=== PATIENT | female | born 1960 | race Caucasian/White ===

== ENCOUNTER 2016-06-27 12:16 | Inpatient (IN) | payer MEDICARE, MEDICAID ==
[2016-06-27] MEDS ORDERED: METHYLPREDNISOLONE PF 125MG/VIAL IVP ONE (12:33)
[2016-06-27] MEDS ORDERED: IPRATROPIUM/ALBUTEROL (0.5MG/3MG) NEB INH ONE (12:33)
[2016-06-27 13:04] LABS: HEMATOCRIT 47.1 % (35.0-47.0); HEMOGLOBIN 15.8 gm/dl (11.6-16.0); MEAN CELL VOLUME 91.1 fl (81-97); MEAN CORPUSCULAR HEMOGLOBIN 30.6 pg (27-33); MEAN CORPUSCULAR HGB CONC 33.5 g/dl (32-36); MEAN PLATELET VOLUME 9.8 fl (7.4-10.4); PLATELET COUNT 260 K/uL (130-400); RED BLOOD COUNT 5.17 M/uL (3.80-5.40); RED CELL DISTRIBUTION WIDTH 12.9 % (11.5-14.5); WHITE BLOOD COUNT W/O DIFF 18.5 K/uL (4.2-12.2)
--- NOTE | 2016-06-27 13:21 | Emergency Department Record ---
History of Present Illness - General Chief Complaint: Shortness of breath Stated Complaint: SOB Time Seen by Provider: 06/27/16 12:26 Source: Patient Mode of Arrival: Ambulatory Limitations: No limitations - History of Present Illness Initial Comments: pt has increasing sob, feeling like she cant breathe. pt has yellow prod cough. pt was seen yesterday by PA and given steroids. pt has increasing sob MD Complaint: Cough, Shortness of breath Onset/Timin -: Days(s) Consistency: Getting worse Improves With: Nothing Worsens With: Movement Context: Recent URI Associated Symptoms: Cough, Sputum production Treatments Prior to Arrival: None, Bronchodilator - Related Data Previous Rx's Medication Instructions Recorded Aspirin/Calcium Carbonate/Mag 325 mg PO DAILY #30 tablet 01/03/15 [Aspirin Buffered 325 mg Tab] Cyclobenzaprine HCl [Flexeril] 1 tab PO BID PRN #60 tablet 01/03/15 Fluticasone Propionate [Flonase] 1 - 2 spray EACH NARES DAILY #1 01/03/15 bottle Allergies Allergy/AdvReac Type Severity Reaction Status Date / Time No Known Drug Allergies Allergy Verified 06/27/16 12:27 Travel Screening - Travel/Exposure Within Last 30 Days Have you traveled within the last 30 days?: No - Travel/Exposure Within Last Year Have you traveled outside the [place] in the last year?: No - Additonal Travel Details Have you been exposed to anyone with a communicable illness?: No - Travel Symptoms Symptom Screening: None Review of Systems Reviewed: No additional complaints except as noted below Constitutional: Reports: As per HPI. Denies: Chills, Fever, Malaise, Night sweats, Weakness, Weight change Eyes: Reports: As per HPI. Denies: Eye discharge, Eye pain, Photophobia, Vision change ENT: Reports: As per HPI. Denies: Congestion, Dental pain, Ear pain, Epistaxis , Hearing loss, Throat pain Respiratory: Reports: As per HPI. Denies: Cough, Dyspnea, Hemoptysis, Stridor, Wheezes Cardiovascular: Reports: As per HPI. Denies: Arrhythmia, Chest pain, Dyspnea on exertion, Edema, Murmurs, Orthopnea, Palpitations, Paroxysmal nocturnal dyspnea, Rheumatic Fever, Syncope Endocrine: Reports: As per HPI. Denies: Fatigue, Heat or cold intolerance, Polydipsia, Polyuria Gastrointestinal: Reports: As per HPI. Denies: Abdominal pain, Constipation, Diarrhea, Hematemesis, Hematochezia, Melena, Nausea, Vomiting Genitourinary: Reports: As per HPI. Denies: Abnormal menses, Discharge, Dyspareunia, Dysuria, Frequency, Hematuria, Incontinence, Retention, Urgency Musculoskeletal: Reports: As per HPI. Denies: Arthralgia, Back pain, Gout, Joint swelling, Myalgia, Neck pain Skin: Reports: As per HPI. Denies: Bruising, Change in color, Change in hair/ nails, Lesions, Pruritus, Rash Neurological: Reports: As per HPI. Denies: Abnormal gait, Confusion, Headache, Numbness, Paresthesias, Seizure, Tingling, Tremors, Vertigo, Weakness Psychiatric: Reports: As per HPI. Denies: Anxiety, Auditory hallucinations, Depression, Homicidal thoughts, Suicidal thoughts, Visual hallucinations Hematological/Lymphatic: Reports: As per HPI. 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 - ENDOCRINE Hx Endocrine Disorders: No - MUSCULOSKELETAL Hx Musculoskeletal Disorders: Yes Hx Arthritis: Yes - PSYCH Hx Psych Problems: Yes Hx Anxiety: Yes Hx Depression: Yes - HEMATOLOGY/ONCOLOGY Hx Hematology/Oncology Disorders: Yes Hx Clotting Problems: Yes (factor 5) Family Medical History Any Significant Family History?: No Family Hx Comment (NOT TO BE USED IN PLACE OF ITEMS BELOW): factor 5 (multiple family members)-mom with DVt Hx Cancer: Grandparents *Cancer Comment: colon Hx HTN: Father, Mother, Children, Brother/Sister, Grandparents Hx Stroke: Father Physical Exam - General General Appearance: Alert, Oriented x3, Cooperative, Mild distress - Head Head exam: Normal inspection - Eye Eye exam: Normal appearance, PERRL, EOMI Pupils: Normal accommodation - ENT ENT exam: Normal exam, Mucous membranes moist, Normal external ear exam, Normal orophraynx Ear exam: Normal external inspection. negative: External canal tenderness Nasal Exam: Normal inspection. negative: Discharge, Sinus tenderness Mouth exam: Normal external inspection, Tongue normal Teeth exam: Normal inspection. negative: Dental caries Throat exam: Normal inspection. negative: Tonsillar erythema, Tonsillar exudate - Neck Neck exam: Normal inspection, Full ROM. negative: Tenderness - Respiratory Respiratory exam: Accessory muscle use, Decreased breath sounds, Respiratory distress, Wheezes - Cardiovascular Cardiovascular Exam: Regular rate, Normal rhythm, Normal heart sounds - GI/Abdominal GI/Abdominal exam: Soft, Normal bowel sounds. negative: Tenderness - Rectal Rectal exam: Deferred - exam: Deferred - Extremities Extremities exam: Normal inspection, Full ROM, Normal capillary refill. negative: Tenderness - Back Back exam: Reports: Normal inspection, Full ROM. Denies: Muscle spasm, Rash noted, Tenderness - Neurological Neurological exam: Alert, CN II-XII intact, Normal gait, Oriented X3 - Psychiatric Psychiatric exam: Normal affect, Normal mood - Skin Skin exam: Dry, Intact, Normal color, Warm Course Vital Signs 06/27/16 06/27/16 12:18 12:39 Temperature 97.5 F L Pulse Rate 98 H 94 H Respiratory 20 22 Rate Blood Pressure 146/91 Pulse Ox 94 L 95 - Reevaluation(s) Reevaluation #1: 06/27/16 17:23 pt becomes dyspneic and desats off of oxygen Reevaluation #2: 06/27/16 17:33 pt still desats to mid to upper 80s w/o oxygen. d/w dr siu Medical Decision Making - Lab Data Result diagrams: 06/27/16 12:50 06/27/16 12:50 Lab Results 06/27/16 Range/Units 12:50 WBC 18.5 H (4.2-12.2) K/uL RBC 5.17 (3.80-5.40) M/uL Hgb 15.8 (11.6-16.0) gm/dl Hct 47.1 H (35.0-47.0) % MCV 91.1 (81-97) fl MCH 30.6 (27-33) pg MCHC 33.5 (32-36) g/dl RDW 12.9 (11.5-14.5) % Plt Count 260 (130-400) K/uL MPV 9.8 (7.4-10.4) fl Eosinophils % Not Reportable Basophils % Not Reportable Disposition Disposition: Admit Clinical Impression: COPD with acute exacerbation, Hypoxia, Failure of outpatient treatment Disposition: Still a Patient at [facility] Decision to Admit: Admit from ER Decision to Admit Date: 06/27/16 Decision to Admit Time: 17:36 Forms: Patient Portal Access
[2016-06-27 13:29] LABS: PLATELET ESTIMATE NORMAL (NORMAL)
[2016-06-27 13:32] LABS: ANION GAP 13.4 (7-16); BLOOD UREA NITROGEN 19 mg/dL (7-17); CARBON DIOXIDE 24.6 mmol/L (22-30); CREATININE 0.7 mg/dL (0.52-1.04); EST GLOMERULAR FILTRATION RATE > 60 ml/min; GLUCOSE,RANDOM 107 mg/dL (70-110)
[2016-06-27] MEDS ORDERED: ALBUTEROL SULFATE (0.083%) 2.5 MG/3 ML NEB INH ONE (17:34)
[2016-06-27] MEDS ORDERED: MELOXICAM 7.5 MG TABLET PO PRN (18:26)
[2016-06-27] MEDS ORDERED: ALBUTEROL SULFATE (0.083%) 2.5 MG/3 ML NEB INH PRN (18:26)
[2016-06-27] MEDS ORDERED: ATORVASTATIN 20 MG TABLET PO SCH (18:26)
[2016-06-27] MEDS ORDERED: Non-Formulary MISC (Losartan Potassium [Losartan Potassium] 50 MG) PO SCH (18:26)
[2016-06-27] MEDS ORDERED: CYCLOBENZAPRINE 10MG TABLET PO PRN (18:26)
[2016-06-27] MEDS ORDERED: TRAMADOL HCL 50 MG TABLET PO PRN (18:26)
[2016-06-27] MEDS ORDERED: METOPROLOL TARTRATE 100 MG PO SCH (22:00)
[2016-06-27] MEDS: IPRATROPIUM/ALBUTEROL (0.5MG/3MG) NEB INH PRN (22:34)
[2016-06-27] MEDS: ATORVASTATIN 20 MG TABLET PO SCH (22:48)
[2016-06-28] MEDS: IPRATROPIUM/ALBUTEROL (0.5MG/3MG) NEB INH PRN ×3 (06:13→21:49)
[2016-06-28] MEDS: ACETAMINOPHEN 500 MG TABLET PO PRN ×2 (06:33→21:41)
[2016-06-28] MEDS ORDERED: GUAIFENESIN/D-METH. 10 ML UDC PO PRN (09:34)
[2016-06-28] MEDS ORDERED: Non-Formulary MISC (Duloxetine Hcl [Cymbalta] 60 MG) PO SCH (10:00)
[2016-06-28] MEDS ORDERED: ASPIRIN PO SCH (10:00)
[2016-06-28] MEDS ORDERED: CALCIUM CARBONATE PO SCH (10:00)
[2016-06-28] MEDS ORDERED: MAG PO SCH (10:00)
[2016-06-28] MEDS: LEVOFLOXACIN/D5W 750 MG in DEXTROSE 1 BAG IVPB SCH (11:27)
[2016-06-28] MEDS: DULOXETINE HCL 30 MG CAPSULE.DR PO SCH (11:28)
[2016-06-28] MEDS: GUAIFENESIN 1,200 MG TABLET PO SCH ×2 (11:28→21:41)
[2016-06-28] MEDS: ASPIRIN 325 MG TAB ENTERIC-COATED PO SCH (11:29)
[2016-06-28] MEDS: METHYLPREDNISOLONE PF 125MG/VIAL IVP SCH (11:29)
[2016-06-28] MEDS: METOPROLOL TART 50 MG TABLET PO SCH ×2 (11:31→21:41)
[2016-06-28] MEDS: LOSARTAN POTASSIUM 25 MG TABLET PO SCH (11:34)
--- NOTE | 2016-06-28 15:32 | History & Physical ---
History of Present Illness - Date of Service Date of Service for History & Physical: 06/28/16 - History of Present Illness Admitting Diagnosis: acute exacerbation copd, outpt failure, hypoxia History of Present Illness: 55 yo F presented to ED with increasing SOB with productive cough. Pt was seen yesterday by PA and given steroids. She is a current everyday smoker of 1ppd since [id number] and now smokes a few ciggs a day now. At home she was doing duonebs, albuterol, and flonase. She was not taking any daily COPD medications. She was given solumederol 125mg IM/IV dose twice in past two days. Now she is on 60mg daily and was started on levaquin with duonebs here. She did have some flacial flushing but otherwise appears improved. Past medical history of superficial venous thrombosis, weakness, IBS, athritis, fibromyalgia, anxiety/depression, Factor 5 Liden. Patient has finished rehab for leg weakness, Sxh: hysterectomy, hemmorhoidectomy, cholescystectomy, Travel Screening - Travel/Exposure Within Last 30 Days Have you traveled within the last 30 days?: No - Travel/Exposure Within Last Year Have you traveled outside the [place] in the last year?: No - Additonal Travel Details Have you been exposed to anyone with a communicable illness?: Yes Exposure Details:: RSV - Travel Symptoms Symptom Screening: Headache, Weakness, Fatigue, Lack of Appetite, Chills Review of Systems Constitutional: Reports: As per HPI. Denies: Chills, Fever, Malaise, Night sweats, Weakness, Weight change Eyes: Reports: As per HPI. Denies: Eye discharge, Eye pain, Photophobia, Vision change ENT: Reports: As per HPI. Denies: Congestion, Dental pain, Ear pain, Epistaxis , Hearing loss, Throat pain Respiratory: Reports: As per HPI. Denies: Cough, Dyspnea, Hemoptysis, Stridor, Wheezes Cardiovascular: Reports: As per HPI. Denies: Arrhythmia, Chest pain, Dyspnea on exertion, Edema, Murmurs, Orthopnea, Palpitations, Paroxysmal nocturnal dyspnea, Rheumatic Fever, Syncope Endocrine: Reports: As per HPI. Denies: Fatigue, Heat or cold intolerance, Polydipsia, Polyuria Gastrointestinal: Reports: As per HPI. Denies: Abdominal pain, Constipation, Diarrhea, Hematemesis, Hematochezia, Melena, Nausea, Vomiting Genitourinary: Reports: As per HPI. Denies: Abnormal menses, Discharge, Dyspareunia, Dysuria, Frequency, Hematuria, Incontinence, Retention, Urgency Musculoskeletal: Reports: As per HPI. Denies: Arthralgia, Back pain, Gout, Joint swelling, Myalgia, Neck pain Skin: Reports: As per HPI. Denies: Bruising, Change in color, Change in hair/ nails, Lesions, Pruritus, Rash Neurological: Reports: As per HPI. Denies: Abnormal gait, Confusion, Headache, Numbness, Paresthesias, Seizure, Tingling, Tremors, Vertigo, Weakness Psychiatric: Reports: As per HPI. Denies: Anxiety, Auditory hallucinations, Depression, Homicidal thoughts, Suicidal thoughts, Visual hallucinations Hematological/Lymphatic: Reports: As per HPI. 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 - ENDOCRINE Hx Endocrine Disorders: No - MUSCULOSKELETAL Hx Musculoskeletal Disorders: Yes Hx Arthritis: Yes - PSYCH Hx Psych Problems: Yes Hx Anxiety: Yes Hx Depression: Yes - HEMATOLOGY/ONCOLOGY Hx Hematology/Oncology Disorders: Yes Hx Clotting Problems: Yes (factor 5) Family Medical History Any Significant Family History?: No Family Hx Comment (NOT TO BE USED IN PLACE OF ITEMS BELOW): factor 5 (multiple family members)-mom with DVt Hx Cancer: Grandparents *Cancer Comment: colon Hx HTN: Father, Mother, Children, Brother/Sister, Grandparents Hx Stroke: Father H&P Meds/Allergies - Allergies Allergies: Allergies Allergy/AdvReac Type Severity Reaction Status Date / Time No Known Drug Allergies Allergy Verified 06/27/16 12:27 - Home Medications Previous Rx's Medication Instructions Recorded Aspirin/Calcium Carbonate/Mag 325 mg PO DAILY #30 tablet 01/03/15 [Aspirin Buffered 325 mg Tab] Cyclobenzaprine HCl [Flexeril] 1 tab PO BID PRN #60 tablet 01/03/15 Fluticasone Propionate [Flonase] 1 - 2 spray EACH NARES DAILY #1 01/03/15 bottle - Active Medications Active Medications: Current Medications Acetaminophen (Tylenol 500mg Tab) 1,000 mg PO Q6H PRN PRN Reason: PAIN/TEMP Last Admin: 06/28/16 06:33 Dose: 1,000 mg Albuterol Sulfate () 2.5 mg INH RESP.Q4H PRN PRN Reason: DIFFICULTY IN BREATHING Albuterol/Ipratropium (Duoneb) 3 ml INH RESP.Q6H PRN PRN Reason: Wheezing Last Admin: 06/28/16 13:55 Dose: 3 ml Aspirin (Ecotrin (Ec)) 325 mg PO DAILY [facility] Last Admin: 06/28/16 11:29 Dose: 325 mg Atorvastatin Calcium (Lipitor) 20 mg PO QHS [facility] Last Admin: 06/27/16 22:48 Dose: Not Given Benzonatate (Tessalon) 100 mg PO TID PRN PRN Reason: COUGH Cyclobenzaprine HCl (Flexeril) 10 mg PO BID PRN PRN Reason: Pain - General Duloxetine HCl (Cymbalta) 60 mg PO DAILY [facility] Last Admin: 06/28/16 11:28 Dose: 60 mg Guaifenesin (Robitussin Dm) 10 ml PO Q4H PRN PRN Reason: COUGH Guaifenesin (Mucinex) 1,200 mg PO BID [facility] Last Admin: 06/28/16 11:28 Dose: 1,200 mg Levofloxacin/Dextrose 750 mg/ (Glucose) 150 mls @ 125 mls/hr IVPB DAILY [facility] Stop: 07/03/16 10:01 Last Admin: 06/28/16 11:27 Dose: 125 mls/hr Losartan Potassium (Cozaar) 50 mg PO DAILY [facility] Last Admin: 06/28/16 11:34 Dose: Not Given Meloxicam (Mobic) 7.5 mg PO BID PRN PRN Reason: Pain - Moderate (5-7) Methylprednisolone Sodium Succinate (Solu-Medrol) 60 mg IVP DAILY [facility] Last Admin: 06/28/16 11:29 Dose: 60 mg Metoprolol Tartrate (Lopressor) 100 mg PO BID [facility] Last Admin: 06/28/16 11:31 Dose: 100 mg Tramadol HCl (Ultram) 50 mg PO Q6H PRN PRN Reason: BREAKTHROUGH PAIN Physical Exam - Vital Signs Vital Signs: Vital Signs - Last 24 Hrs Temp Pulse Pulse Resp BP Pulse Ox 06/28/16 13:59 95 06/28/16 13:57 87 18 97 06/28/16 11:35 97.9 F 98 H 20 113/68 95 06/28/16 08:52 100 H 20 06/28/16 06:36 98.1 F 100 H 24 146/76 94 L 06/28/16 06:13 99 H 20 97 06/28/16 02:26 98.1 F 92 H 20 90/50 96 06/27/16 22:34 107 H 20 93 L 06/27/16 18:26 98.6 F 93 H 20 120/61 93 L - General General Appearance: Alert, Oriented x3, Cooperative, Mild distress Limitations: No limitations - Head Head exam: Normal inspection - Eye Eye exam: Normal appearance, PERRL, EOMI Pupils: Normal accommodation - ENT ENT exam: Normal exam, Mucous membranes moist, Normal external ear exam, Normal orophraynx Ear exam: Normal external inspection. negative: External canal tenderness Nasal Exam: Normal inspection. negative: Discharge, Sinus tenderness Mouth exam: Normal external inspection, Tongue normal Teeth exam: Normal inspection. negative: Dental caries Throat exam: Normal inspection. negative: Tonsillar erythema, Tonsillar exudate - Neck Neck exam: Normal inspection, Full ROM. negative: Tenderness - Respiratory Respiratory exam: Accessory muscle use, Decreased breath sounds, Respiratory distress, Wheezes - Cardiovascular Cardiovascular Exam: Regular rate, Normal rhythm, Normal heart sounds - GI/Abdominal GI/Abdominal exam: Soft, Normal bowel sounds. negative: Tenderness - Rectal Rectal exam: Deferred - exam: Deferred - Extremities Extremities exam: Normal inspection, Full ROM, Normal capillary refill. negative: Tenderness - Back Back exam: Reports: Normal inspection, Full ROM. Denies: Muscle spasm, Rash noted, Tenderness - Neurological Neurological exam: Alert, CN II-XII intact, Normal gait, Oriented X3 - Psychiatric Psychiatric exam: Normal affect, Normal mood - Skin Skin exam: Dry, Intact, Normal color, Warm Results - Labs Result Diagrams: 06/27/16 12:50 06/27/16 12:50 VTE H&P Assessment - Risk for VTE Risk for VTE: Yes Risk Level: Moderate Risk Assessment Date: 06/28/16 Risk Assessment Time: 16:17 VTE Orders Placed or Will Be Placed: Yes Plan - Detailed Diagnosis and Plan (1) COPD with acute exacerbation Current Visit: Yes Status: Acute Base Code: J44.1 - CHRONIC OBSTRUCTIVE PULMONARY DISEASE W (ACUTE) EXACERBATION Comment: 06/28- start COPD pathway with prophylactic antibiotic (levaquin), steroids 60mg/day (given loading dose 125mg in ER), and breathing treatments with duonebs, albuterol, and advair. ordered RSV and influenza PCR. Explained to patient will take some time to improve. currently still desating to low 80s with ambulation to bathroom. (2) DVT prophylaxis Current Visit: Yes Status: Acute Base Code: [id number] - Comment: - lovenox 40mg daily (3) Full code status Current Visit: Yes Status: Acute Base Code: Z78.9 - OTHER SPECIFIED HEALTH STATUS Comment: - full code diring this admission
[2016-06-28] MEDS: FLUTICASONE/SALMETEROL 500/50 DISKUS INH SCH (17:39)
[2016-06-28] MEDS: ENOXAPARIN 40 MG/0.4 ML SYR SQ SCH (17:59)
[2016-06-28] MEDS: ATORVASTATIN 20 MG TABLET PO SCH (21:41)
[2016-06-29] MEDS: FLUTICASONE/SALMETEROL 500/50 DISKUS INH SCH ×3 (06:59→17:32)
--- NOTE | 2016-06-29 07:21 | RADIOLOGY REPORT ---
EXAM: CHEST, TWO VIEWS HISTORY: DIFFICULTY BREATHING. TECHNIQUE: Frontal and lateral views of the chest were obtained. Comparison: Prior chest 06/26/16. FINDINGS: The heart size is normal. The lungs are clear. There is no pneumothorax. IMPRESSION: NEGATIVE CHEST EXAMINATION. JOB NUMBER: [id number] MTDD
[2016-06-29] MEDS: IPRATROPIUM/ALBUTEROL (0.5MG/3MG) NEB INH PRN ×2 (08:56→21:13)
[2016-06-29] MEDS: LOSARTAN POTASSIUM 25 MG TABLET PO SCH (10:25)
[2016-06-29] MEDS: DULOXETINE HCL 30 MG CAPSULE.DR PO SCH (10:26)
[2016-06-29] MEDS: ASPIRIN 325 MG TAB ENTERIC-COATED PO SCH (10:27)
[2016-06-29] MEDS: METOPROLOL TART 50 MG TABLET PO SCH ×2 (10:27→23:08)
[2016-06-29] MEDS: METHYLPREDNISOLONE PF 125MG/VIAL IVP SCH (10:28)
[2016-06-29] MEDS: ENOXAPARIN 40 MG/0.4 ML SYR SQ SCH (10:28)
[2016-06-29] MEDS: GUAIFENESIN 1,200 MG TABLET PO SCH ×2 (10:28→23:09)
[2016-06-29] MEDS: LEVOFLOXACIN/D5W 750 MG in DEXTROSE 1 BAG IVPB SCH (10:40)
--- NOTE | 2016-06-29 18:45 | Physician Progress Note ---
Subjective - Date Date of Physician Progress Note: 06/29/16 - Subjective Subjective Comment: Patient still struggling to breath with ambulation and desatting Objective - Vital Signs Vital Signs: Vital Signs - Last 24 Hrs Pulse Resp Pulse Ox 06/29/16 17:33 90 20 95 - General General Appearance: Alert, Oriented x3, Cooperative, Mild distress Limitations: No limitations - Head Head exam: Normal inspection - Eye Eye exam: Normal appearance, PERRL, EOMI Pupils: Normal accommodation - ENT ENT exam: Normal exam, Mucous membranes moist, Normal external ear exam, Normal orophraynx Ear exam: Normal external inspection. negative: External canal tenderness Nasal Exam: Normal inspection. negative: Discharge, Sinus tenderness Mouth exam: Normal external inspection, Tongue normal Teeth exam: Normal inspection. negative: Dental caries Throat exam: Normal inspection. negative: Tonsillar erythema, Tonsillar exudate - Neck Neck exam: Normal inspection, Full ROM. negative: Tenderness - Respiratory Respiratory exam: Accessory muscle use, Decreased breath sounds, Respiratory distress, Wheezes - Cardiovascular Cardiovascular Exam: Regular rate, Normal rhythm, Normal heart sounds - GI/Abdominal GI/Abdominal exam: Soft, Normal bowel sounds. negative: Tenderness - Rectal Rectal exam: Deferred - exam: Deferred - Extremities Extremities exam: Normal inspection, Full ROM, Normal capillary refill. negative: Tenderness - Back Back exam: Reports: Normal inspection, Full ROM. Denies: Muscle spasm, Rash noted, Tenderness - Neurological Neurological exam: Alert, CN II-XII intact, Normal gait, Oriented X3 - Psychiatric Psychiatric exam: Normal affect, Normal mood - Skin Skin exam: Dry, Intact, Normal color, Warm Assessment and Plan - Assessment and Plan (1) COPD with acute exacerbation Current Visit: Yes Status: Acute Base Code: J44.1 - CHRONIC OBSTRUCTIVE PULMONARY DISEASE W (ACUTE) EXACERBATION Comment: 06/29- patient tested positive for RSV, negative for flu. Continue COPD pathway with prophylactic antibiotic (levaquin), steroids 60mg/day (given loading dose 125mg in ER), and breathing treatments with duonebs, albuterol, and advair. Explained to patient will take some time to improve. Currently still desating to low 80s with ambulation to bathroom. (2) DVT prophylaxis Current Visit: Yes Status: Acute Base Code: [id number] - Comment: - lovenox 40mg daily (3) Full code status Current Visit: Yes Status: Acute Base Code: Z78.9 - OTHER SPECIFIED HEALTH STATUS Comment: - full code diring this admission Results - Labs Result Diagrams: 06/27/16 12:50 06/27/16 12:50 DVT/PE Assessment - Risk for VTE Risk for VTE: No Risk Level: Moderate Risk Assessment Date: 06/28/16 Risk Assessment Time: 16:17 VTE Orders Placed or Will Be Placed: Yes - Active Medicaitons Current Medications: Current Medications Acetaminophen (Tylenol 500mg Tab) 1,000 mg PO Q6H PRN PRN Reason: PAIN/TEMP Last Admin: 06/28/16 21:41 Dose: 1,000 mg Albuterol Sulfate () 2.5 mg INH RESP.Q4H PRN PRN Reason: DIFFICULTY IN BREATHING Albuterol/Ipratropium (Duoneb) 3 ml INH RESP.Q6H PRN PRN Reason: Wheezing Last Admin: 06/29/16 08:56 Dose: 3 ml Aspirin (Ecotrin (Ec)) 325 mg PO DAILY [facility] Last Admin: 06/29/16 10:27 Dose: 325 mg Atorvastatin Calcium (Lipitor) 20 mg PO QHS [facility] Last Admin: 06/28/16 21:41 Dose: 20 mg Benzonatate (Tessalon) 100 mg PO TID PRN PRN Reason: COUGH Cyclobenzaprine HCl (Flexeril) 10 mg PO BID PRN PRN Reason: Pain - General Duloxetine HCl (Cymbalta) 60 mg PO DAILY [facility] Last Admin: 06/29/16 10:26 Dose: 60 mg Enoxaparin Sodium (Lovenox) 40 mg SQ DAILY [facility] Last Admin: 06/29/16 10:28 Dose: 40 mg Guaifenesin (Robitussin Dm) 10 ml PO Q4H PRN PRN Reason: COUGH Guaifenesin (Mucinex) 1,200 mg PO BID [facility] Last Admin: 06/29/16 10:28 Dose: 1,200 mg Levofloxacin/Dextrose 750 mg/ (Glucose) 150 mls @ 125 mls/hr IVPB DAILY [facility] Stop: 07/03/16 10:01 Last Admin: 06/29/16 10:40 Dose: 125 mls/hr Losartan Potassium (Cozaar) 50 mg PO DAILY [facility] Last Admin: 03/20/17 10:25 Dose: 50 mg Meloxicam (Mobic) 7.5 mg PO BID PRN PRN Reason: Pain - Moderate (5-7) Methylprednisolone Sodium Succinate (Solu-Medrol) 60 mg IVP DAILY [facility] Last Admin: 06/29/16 10:28 Dose: 60 mg Metoprolol Tartrate (Lopressor) 100 mg PO BID [facility] Last Admin: 06/29/16 10:27 Dose: 100 mg Fluticasone/Salmeterol (Advair 500/50) 1 puff INH RESP.Q12H [facility] Last Admin: 06/29/16 17:32 Dose: 1 puff Tramadol HCl (Ultram) 50 mg PO Q6H PRN PRN Reason: BREAKTHROUGH PAIN AMI Plan - Labs Result Diagrams: 06/27/16 12:50 06/27/16 12:50
[2016-06-29] MEDS: ATORVASTATIN 20 MG TABLET PO SCH (23:09)
[2016-06-30] MEDS: IPRATROPIUM/ALBUTEROL (0.5MG/3MG) NEB INH PRN (06:00)
[2016-06-30] MEDS: FLUTICASONE/SALMETEROL 500/50 DISKUS INH SCH ×2 (06:10→17:05)
--- NOTE | 2016-06-30 10:02 | Physician Progress Note ---
Subjective - Date Date of Physician Progress Note: 06/30/16 - Subjective Subjective Comment: continues to feel sob w/ ambulation O2 desat into 80's w/ ambulation appetite decreased normal /GI output afebrile. Objective - Vital Signs Vital Signs: Vital Signs - Last 24 Hrs Temp Pulse Pulse Resp BP Pulse Ox 06/30/16 08:00 97.1 F L 89 14 107/61 95 06/30/16 06:10 79 20 06/30/16 06:00 76 20 97 06/29/16 23:10 97.8 F 100 H 22 98/55 94 L 06/29/16 21:58 98.4 F 95 H 20 124/71 93 L 06/29/16 21:13 95 H 20 94 L 06/29/16 17:33 90 20 95 - General General Appearance: Alert, Oriented x3, Cooperative, No acute distress Limitations: No limitations - Head Head exam: Normal inspection - Eye Eye exam: Normal appearance, PERRL, EOMI Pupils: Normal accommodation - ENT ENT exam: Normal exam, Mucous membranes moist, Normal external ear exam, Normal orophraynx Ear exam: Normal external inspection. negative: External canal tenderness Nasal Exam: Normal inspection. negative: Discharge, Sinus tenderness Mouth exam: Normal external inspection, Tongue normal Teeth exam: Normal inspection. negative: Dental caries Throat exam: Normal inspection. negative: Tonsillar erythema, Tonsillar exudate - Neck Neck exam: Normal inspection, Full ROM. negative: Tenderness - Respiratory Respiratory exam: Decreased breath sounds, Wheezes - Cardiovascular Cardiovascular Exam: Regular rate, Normal rhythm, Normal heart sounds - GI/Abdominal GI/Abdominal exam: Soft, Normal bowel sounds. negative: Tenderness - Rectal Rectal exam: Deferred - exam: Deferred - Extremities Extremities exam: Normal inspection, Full ROM, Normal capillary refill. negative: Tenderness - Back Back exam: Reports: Normal inspection, Full ROM. Denies: Muscle spasm, Rash noted, Tenderness - Neurological Neurological exam: Alert, CN II-XII intact, Normal gait, Oriented X3 - Psychiatric Psychiatric exam: Normal affect, Normal mood - Skin Skin exam: Dry, Intact, Normal color, Warm Assessment and Plan - Inpatient Certification Inpatient Certification: est length of stay: 48-72 hours risk factors: shortness of breath, oxygen desating into the 80's on RA, positive RSV, oxygen supp treatments: close monitoring, IV antibiotic, oxygen supplementation, respiratory therapy services. discharge plan: home, self care 06/30/16 10:01 06/30/16 10:02 - Assessment and Plan (1) COPD with acute exacerbation Current Visit: Yes Status: Acute Base Code: J44.1 - CHRONIC OBSTRUCTIVE PULMONARY DISEASE W (ACUTE) EXACERBATION Comment: 06/30/16- patient tested positive for RSV, negative for flu. Continue COPD pathway with prophylactic antibiotic (levaquin), steroids 60mg/day (given loading dose 125mg in ER), and breathing treatments with duonebs, albuterol, and advair. Explained to patient will take some time to improve. Currently still desating to low 80s with ambulation to bathroom. supplemental O2 02/11. Will trial inhaled saline solution following duo neb treatments to see if this helps break up pulm secretions. (2) DVT prophylaxis Current Visit: Yes Status: Acute Base Code: [id number] - Comment: 06/30/16- lovenox 40mg daily (3) Full code status Current Visit: Yes Status: Acute Base Code: Z78.9 - OTHER SPECIFIED HEALTH STATUS Comment: 06/30/16- full code diring this admission Results - Labs Result Diagrams: 06/27/16 12:50 06/27/16 12:50 DVT/PE Assessment - Risk for VTE Risk for VTE: No Risk Level: Moderate Risk Assessment Date: 06/28/16 Risk Assessment Time: 16:17 VTE Orders Placed or Will Be Placed: Yes - Active Medicaitons Current Medications: Current Medications Acetaminophen (Tylenol 500mg Tab) 1,000 mg PO Q6H PRN PRN Reason: PAIN/TEMP Last Admin: 06/28/16 21:41 Dose: 1,000 mg Albuterol Sulfate () 2.5 mg INH RESP.Q4H PRN PRN Reason: DIFFICULTY IN BREATHING Albuterol/Ipratropium (Duoneb) 3 ml INH RESP.Q6H PRN PRN Reason: Wheezing Last Admin: 06/30/16 06:00 Dose: 3 ml Aspirin (Ecotrin (Ec)) 325 mg PO DAILY [facility] Last Admin: 06/29/16 10:27 Dose: 325 mg Atorvastatin Calcium (Lipitor) 20 mg PO QHS [facility] Last Admin: 06/29/16 23:09 Dose: 20 mg Benzonatate (Tessalon) 100 mg PO TID PRN PRN Reason: COUGH Cyclobenzaprine HCl (Flexeril) 10 mg PO BID PRN PRN Reason: Pain - General Duloxetine HCl (Cymbalta) 60 mg PO DAILY [facility] Last Admin: 06/29/16 10:26 Dose: 60 mg Enoxaparin Sodium (Lovenox) 40 mg SQ DAILY [facility] Last Admin: 06/29/16 10:28 Dose: 40 mg Guaifenesin (Robitussin Dm) 10 ml PO Q4H PRN PRN Reason: COUGH Guaifenesin (Mucinex) 1,200 mg PO BID [facility] Last Admin: 06/29/16 23:09 Dose: 1,200 mg Levofloxacin/Dextrose 750 mg/ (Glucose) 150 mls @ 125 mls/hr IVPB DAILY [facility] Stop: 07/03/16 10:01 Last Admin: 06/29/16 10:40 Dose: 125 mls/hr Losartan Potassium (Cozaar) 50 mg PO DAILY [facility] Last Admin: 06/29/16 10:25 Dose: 50 mg Meloxicam (Mobic) 7.5 mg PO BID PRN PRN Reason: Pain - Moderate (5-7) Methylprednisolone Sodium Succinate (Solu-Medrol) 60 mg IVP DAILY [facility] Last Admin: 06/29/16 10:28 Dose: 60 mg Metoprolol Tartrate (Lopressor) 100 mg PO BID [facility] Last Admin: 06/29/16 23:08 Dose: 100 mg Fluticasone/Salmeterol (Advair 500/50) 1 puff INH RESP.Q12H [facility] Last Admin: 06/30/16 06:10 Dose: 1 puff Tramadol HCl (Ultram) 50 mg PO Q6H PRN PRN Reason: BREAKTHROUGH PAIN AMI Plan - Labs Result Diagrams: 06/27/16 12:50 06/27/16 12:50
[2016-06-30] MEDS: METHYLPREDNISOLONE PF 125MG/VIAL IVP SCH (10:27)
[2016-06-30] MEDS: DULOXETINE HCL 30 MG CAPSULE.DR PO SCH (10:28)
[2016-06-30] MEDS: LOSARTAN POTASSIUM 25 MG TABLET PO SCH (10:28)
[2016-06-30] MEDS: METOPROLOL TART 50 MG TABLET PO SCH ×2 (10:28→22:10)
[2016-06-30] MEDS: ASPIRIN 325 MG TAB ENTERIC-COATED PO SCH (10:29)
[2016-06-30] MEDS: ENOXAPARIN 40 MG/0.4 ML SYR SQ SCH (10:29)
[2016-06-30] MEDS: LEVOFLOXACIN/D5W 750 MG in DEXTROSE 1 BAG IVPB SCH (10:29)
[2016-06-30] MEDS: GUAIFENESIN 1,200 MG TABLET PO SCH ×2 (10:35→22:10)
[2016-06-30] MEDS ORDERED: SODIUM CHLORIDE 7% FOR INHALATION 4 ML NEB INH ONE (11:49)
[2016-06-30] MEDS: IPRATROPIUM/ALBUTEROL (0.5MG/3MG) NEB INH SCH ×4 (11:55→22:14)
[2016-06-30] MEDS: ATORVASTATIN 20 MG TABLET PO SCH (22:10)
[2016-06-30] MEDS: SODIUM CHLORIDE 7% FOR INHALATION 4 ML NEB INH SCH (22:22)
[2016-07-01] MEDS: IPRATROPIUM/ALBUTEROL (0.5MG/3MG) NEB INH SCH ×5 (06:10→23:00)
[2016-07-01] MEDS: FLUTICASONE/SALMETEROL 500/50 DISKUS INH SCH ×2 (06:10→19:02)
[2016-07-01] MEDS: METOPROLOL TART 50 MG TABLET PO SCH ×2 (09:29→22:20)
[2016-07-01] MEDS: LOSARTAN POTASSIUM 25 MG TABLET PO SCH (09:29)
[2016-07-01] MEDS: METHYLPREDNISOLONE PF 125MG/VIAL IVP SCH (09:30)
[2016-07-01] MEDS: DULOXETINE HCL 30 MG CAPSULE.DR PO SCH (09:32)
[2016-07-01] MEDS: LEVOFLOXACIN 500 MG TABLET PO SCH (09:33)
[2016-07-01] MEDS: ASPIRIN 325 MG TAB ENTERIC-COATED PO SCH (09:33)
[2016-07-01] MEDS: GUAIFENESIN 1,200 MG TABLET PO SCH ×2 (09:33→22:19)
[2016-07-01] MEDS: ENOXAPARIN 40 MG/0.4 ML SYR SQ SCH (09:34)
[2016-07-01] MEDS ORDERED: PREDNISONE 20 MG TAB PO SCH (10:00)
[2016-07-01 10:05] LABS: HEMATOCRIT 45.7 % (35.0-47.0); MEAN CELL VOLUME 93.8 fl (81-97); MEAN CORPUSCULAR HEMOGLOBIN 30.8 pg (27-33); MEAN CORPUSCULAR HGB CONC 32.8 g/dl (32-36); MEAN PLATELET VOLUME 9.3 fl (7.4-10.4); PLATELET COUNT 243 K/uL (130-400); RED BLOOD COUNT 4.87 M/uL (3.80-5.40); RED CELL DISTRIBUTION WIDTH 12.8 % (11.5-14.5); WHITE BLOOD COUNT W/O DIFF 13.9 K/uL (4.2-12.2)
[2016-07-01 10:21] LABS: ANION GAP 4.4 (7-16); BLOOD UREA NITROGEN 24 mg/dL (7-17); CARBON DIOXIDE 28.6 mmol/L (22-30); CREATININE 0.7 mg/dL (0.52-1.04); EST GLOMERULAR FILTRATION RATE > 60 ml/min; GLUCOSE,RANDOM 121 mg/dL (70-110)
[2016-07-01 10:24] LABS: PLATELET ESTIMATE NORMAL (NORMAL)
--- NOTE | 2016-07-01 10:31 | Physician Progress Note ---
Subjective - Date Date of Physician Progress Note: 07/01/16 - Subjective Subjective Comment: continues to feel fatigued, weak. more of a productive cough today decreased appetite normal /GI function afebrile though feels flushed Objective - Vital Signs Vital Signs: Vital Signs - Last 24 Hrs Temp Pulse Pulse Resp BP Pulse Ox 07/01/16 08:45 97.5 F L 87 18 108/65 96 07/01/16 06:10 70 70 L 07/01/16 00:00 98.3 F 78 16 109/71 94 L 06/30/16 22:22 79 20 06/30/16 22:14 77 20 95 06/30/16 17:08 86 97 H 95 06/30/16 17:05 82 18 96 06/30/16 12:09 84 16 - General General Appearance: Alert, Oriented x3, Cooperative, No acute distress Limitations: No limitations - Head Head exam: Normal inspection - Eye Eye exam: Normal appearance, PERRL, EOMI Pupils: Normal accommodation - ENT ENT exam: Normal exam, Mucous membranes moist, Normal external ear exam, Normal orophraynx Ear exam: Normal external inspection. negative: External canal tenderness Nasal Exam: Normal inspection. negative: Discharge, Sinus tenderness Mouth exam: Normal external inspection, Tongue normal Teeth exam: Normal inspection. negative: Dental caries Throat exam: Normal inspection. negative: Tonsillar erythema, Tonsillar exudate - Neck Neck exam: Normal inspection, Full ROM. negative: Tenderness - Respiratory Respiratory exam: Decreased breath sounds, Prolonged expiratory, Wheezes. negative: Respiratory distress - Cardiovascular Cardiovascular Exam: Regular rate, Normal rhythm, Normal heart sounds - GI/Abdominal GI/Abdominal exam: Soft, Normal bowel sounds. negative: Tenderness - Rectal Rectal exam: Deferred - exam: Deferred - Extremities Extremities exam: Normal inspection, Full ROM, Normal capillary refill. negative: Tenderness - Back Back exam: Reports: Normal inspection, Full ROM. Denies: Muscle spasm, Rash noted, Tenderness - Neurological Neurological exam: Alert, CN II-XII intact, Normal gait, Oriented X3 - Psychiatric Psychiatric exam: Normal affect, Normal mood - Skin Skin exam: Dry, Intact, Normal color, Warm Assessment and Plan - Assessment and Plan (1) COPD with acute exacerbation Current Visit: Yes Status: Acute Base Code: J44.1 - CHRONIC OBSTRUCTIVE PULMONARY DISEASE W (ACUTE) EXACERBATION Comment: 07/01/16- patient tested positive for RSV, negative for flu. Continue COPD pathway with prophylactic antibiotic (levaquin), steroids 60mg/day (given loading dose 125mg in ER), and breathing treatments with duonebs, albuterol, and advair. Explained to patient will take some time to improve. Currently still desating into the 80's with ambulation to bathroom. supplemental O2 / . continue inhaled saline solution following duo neb treatments to see if this helps break up pulm secretions. tessalon perles prn for cough. (2) DVT prophylaxis Current Visit: Yes Status: Acute Base Code: [id number] - Comment: 07/01/16- lovenox 40mg daily (3) Full code status Current Visit: Yes Status: Acute Base Code: Z78.9 - OTHER SPECIFIED HEALTH STATUS Comment: 07/01/16- full code diring this admission Results - Labs Result Diagrams: 07/01/16 10:01 07/01/16 10:01 Labs Last 24 Hours: Laboratory Results - last 24 hr 07/01/16 07/01/16 10:01 10:01 WBC 13.9 H RBC 4.87 Hgb 15.0 Hct 45.7 MCV 93.8 MCH 30.8 MCHC 32.8 RDW 12.8 Plt Count 243 MPV 9.3 Neutrophils % 46.0 L Lymphocytes % 43.0 Monocytes % 11.0 H Eosinophils % Not Reportable Basophils % Not Reportable Platelet Estimate Normal RBC Morphology Normal Sodium 139 Potassium 3.6 Chloride 106 Carbon Dioxide 28.6 Anion Gap 4.4 L BUN 24 H Creatinine 0.7 Estimated GFR > 60 Random Glucose 121 H Calcium 8.8 DVT/PE Assessment - Risk for VTE Risk for VTE: No Risk Level: Moderate Risk Assessment Date: 06/28/16 Risk Assessment Time: 16:17 VTE Orders Placed or Will Be Placed: Yes - Active Medicaitons Current Medications: Current Medications Acetaminophen (Tylenol 500mg Tab) 1,000 mg PO Q6H PRN PRN Reason: PAIN/TEMP Last Admin: 06/28/16 21:41 Dose: 1,000 mg Albuterol Sulfate () 2.5 mg INH RESP.Q4H PRN PRN Reason: DIFFICULTY IN BREATHING Albuterol/Ipratropium (Duoneb) 3 ml INH RESP.Q4H.[facility] Last Admin: 07/01/16 06:10 Dose: Not Given Aspirin (Ecotrin (Ec)) 325 mg PO DAILY [facility] Last Admin: 07/01/16 09:33 Dose: 325 mg Atorvastatin Calcium (Lipitor) 20 mg PO QHS [facility] Last Admin: 06/30/16 22:10 Dose: 20 mg Benzonatate (Tessalon) 100 mg PO TID PRN PRN Reason: COUGH Cyclobenzaprine HCl (Flexeril) 10 mg PO BID PRN PRN Reason: Pain - General Duloxetine HCl (Cymbalta) 60 mg PO DAILY [facility] Last Admin: 07/01/16 09:32 Dose: 60 mg Enoxaparin Sodium (Lovenox) 40 mg SQ DAILY [facility] Last Admin: 07/01/16 09:34 Dose: 40 mg Guaifenesin (Robitussin Dm) 10 ml PO Q4H PRN PRN Reason: COUGH Guaifenesin (Mucinex) 1,200 mg PO BID [facility] Last Admin: 07/01/16 09:33 Dose: 1,200 mg Levofloxacin (Levaquin Tab) 750 mg PO DAILY [facility] Last Admin: 07/01/16 09:33 Dose: 750 mg Losartan Potassium (Cozaar) 50 mg PO DAILY [facility] Last Admin: 07/01/16 09:29 Dose: Not Given Meloxicam (Mobic) 7.5 mg PO BID PRN PRN Reason: Pain - Moderate (5-7) Metoprolol Tartrate (Lopressor) 100 mg PO BID [facility] Last Admin: 07/01/16 09:29 Dose: Not Given Prednisone (Prednisone 20mg) 20 mg PO DAILYWM [facility] Last Admin: 07/01/16 09:43 Dose: 20 mg Fluticasone/Salmeterol (Advair 500/50) 1 puff INH RESP.Q12H [facility] Last Admin: 07/01/16 06:10 Dose: Not Given Sodium Chloride (Hyper-Garrett) 4 ml INH BID [facility] Last Admin: 06/30/16 22:22 Dose: 4 ml Tramadol HCl (Ultram) 50 mg PO Q6H PRN PRN Reason: BREAKTHROUGH PAIN AMI Plan - Labs Result Diagrams: 07/01/16 10:01 07/01/16 10:01
[2016-07-01] MEDS: SODIUM CHLORIDE 7% FOR INHALATION 4 ML NEB INH SCH ×2 (11:30→23:00)
[2016-07-01] MEDS ORDERED: PREDNISONE 20 MG TAB PO ONE (13:15)
[2016-07-01] MEDS: ATORVASTATIN 20 MG TABLET PO SCH (22:20)
[2016-07-01] MEDS: BENZONATATE 100 MG CAPSULE PO PRN (22:31)
[2016-07-02] MEDS: FLUTICASONE/SALMETEROL 500/50 DISKUS INH SCH ×2 (06:03→20:15)
[2016-07-02] MEDS: IPRATROPIUM/ALBUTEROL (0.5MG/3MG) NEB INH SCH ×6 (06:03→22:32)
[2016-07-02] MEDS: PREDNISONE 20 MG TAB PO SCH (08:20)
[2016-07-02] MEDS: LOSARTAN POTASSIUM 25 MG TABLET PO SCH (10:02)
[2016-07-02] MEDS: GUAIFENESIN 1,200 MG TABLET PO SCH ×2 (10:03→21:06)
--- NOTE | 2016-07-02 10:03 | Physician Progress Note ---
Subjective - Date Date of Physician Progress Note: 07/02/16 - Subjective Subjective Comment: sitting up in bed. states she's feeling a little better. less cough. producing yellow sputum. O2 sat ~90% on RA after ambulation to the bathroom. appetite improving. no GI/ function. no new concerns. Objective - Vital Signs Vital Signs: Vital Signs - Last 24 Hrs Temp Pulse Pulse Resp BP Pulse Ox 07/02/16 09:43 97.7 F 76 18 127/75 93 L 07/02/16 09:00 76 20 07/02/16 06:06 88 20 07/02/16 06:05 84 20 95 07/02/16 06:04 84 20 95 07/02/16 06:00 97.7 F 72 18 126/71 96 07/01/16 23:04 90 16 94 L 07/01/16 23:02 88 16 94 L 07/01/16 22:20 98.6 F 106 H 18 118/58 94 L 07/01/16 19:08 95 H 16 96 07/01/16 19:07 95 H 16 07/01/16 19:06 96 07/01/16 19:05 94 H 16 07/01/16 17:15 99.0 F 95 H 14 120/78 93 L 07/01/16 14:21 88 18 98 07/01/16 10:00 85 15 93 L - General General Appearance: Alert, Oriented x3, Cooperative, No acute distress Limitations: No limitations - Head Head exam: Normal inspection - Eye Eye exam: Normal appearance, PERRL, EOMI Pupils: Normal accommodation - ENT ENT exam: Normal exam, Mucous membranes moist, Normal external ear exam, Normal orophraynx Ear exam: Normal external inspection. negative: External canal tenderness Nasal Exam: Normal inspection. negative: Discharge, Sinus tenderness Mouth exam: Normal external inspection, Tongue normal Teeth exam: Normal inspection. negative: Dental caries Throat exam: Normal inspection. negative: Tonsillar erythema, Tonsillar exudate - Neck Neck exam: Normal inspection, Full ROM. negative: Tenderness - Respiratory Respiratory exam: Decreased breath sounds, Prolonged expiratory, Wheezes. negative: Respiratory distress - Cardiovascular Cardiovascular Exam: Regular rate, Normal rhythm, Normal heart sounds - GI/Abdominal GI/Abdominal exam: Soft, Normal bowel sounds. negative: Tenderness - Rectal Rectal exam: Deferred - exam: Deferred - Extremities Extremities exam: Normal inspection, Full ROM, Normal capillary refill. negative: Tenderness - Back Back exam: Reports: Normal inspection, Full ROM. Denies: Muscle spasm, Rash noted, Tenderness - Neurological Neurological exam: Alert, CN II-XII intact, Normal gait, Oriented X3 - Psychiatric Psychiatric exam: Normal affect, Normal mood - Skin Skin exam: Dry, Intact, Normal color, Warm Assessment and Plan - Assessment and Plan (1) COPD with acute exacerbation Current Visit: Yes Status: Acute Base Code: J44.1 - CHRONIC OBSTRUCTIVE PULMONARY DISEASE W (ACUTE) EXACERBATION Comment: 07/02/16- patient tested positive for RSV, negative for flu. Continue COPD pathway with prophylactic antibiotic (levaquin), steroids 60mg/day (given loading dose 125mg in ER), and breathing treatments with duonebs, albuterol, and advair. Explained to patient will take some time to improve. Currently still desating to 90% with ambulation to bathroom. supplemental O2 while in bed. continue inhaled saline solution following duo neb treatments to see if this helps break up pulm secretions. tessalon perles prn for cough. will complete home O2 qualification today. I anticipate d/c tomorrow as symptoms are improving. (2) DVT prophylaxis Current Visit: Yes Status: Acute Base Code: [id number] - Comment: 07/02/16- lovenox 40mg daily (3) Full code status Current Visit: Yes Status: Acute Base Code: Z78.9 - OTHER SPECIFIED HEALTH STATUS Comment: 07/02/16- full code diring this admission Results - Labs Result Diagrams: 07/01/16 10:01 07/01/16 10:01 Labs Last 24 Hours: Laboratory Results - last 24 hr 07/01/16 07/01/16 10:01 10:01 WBC 13.9 H RBC 4.87 Hgb 15.0 Hct 45.7 MCV 93.8 MCH 30.8 MCHC 32.8 RDW 12.8 Plt Count 243 MPV 9.3 Neutrophils % 46.0 L Lymphocytes % 43.0 Monocytes % 11.0 H Eosinophils % Not Reportable Basophils % Not Reportable Platelet Estimate Normal RBC Morphology Normal Sodium 139 Potassium 3.6 Chloride 106 Carbon Dioxide 28.6 Anion Gap 4.4 L BUN 24 H Creatinine 0.7 Estimated GFR > 60 Random Glucose 121 H Calcium 8.8 DVT/PE Assessment - Risk for VTE Risk for VTE: No Risk Level: Moderate Risk Assessment Date: 06/28/16 Risk Assessment Time: 16:17 VTE Orders Placed or Will Be Placed: Yes - Active Medicaitons Current Medications: Current Medications Acetaminophen (Tylenol 500mg Tab) 1,000 mg PO Q6H PRN PRN Reason: PAIN/TEMP Last Admin: 06/28/16 21:41 Dose: 1,000 mg Albuterol Sulfate () 2.5 mg INH RESP.Q4H PRN PRN Reason: DIFFICULTY IN BREATHING Albuterol/Ipratropium (Duoneb) 3 ml INH RESP.Q4H.[facility] Last Admin: 07/02/16 06:03 Dose: 3 ml Aspirin (Ecotrin (Ec)) 325 mg PO DAILY [facility] Last Admin: 07/01/16 09:33 Dose: 325 mg Atorvastatin Calcium (Lipitor) 20 mg PO QHS [facility] Last Admin: 07/01/16 22:20 Dose: 20 mg Benzonatate (Tessalon) 100 mg PO TID PRN PRN Reason: COUGH Last Admin: 07/01/16 22:31 Dose: 100 mg Cyclobenzaprine HCl (Flexeril) 10 mg PO BID PRN PRN Reason: Pain - General Duloxetine HCl (Cymbalta) 60 mg PO DAILY [facility] Last Admin: 07/01/16 09:32 Dose: 60 mg Enoxaparin Sodium (Lovenox) 40 mg SQ DAILY [facility] Last Admin: 07/01/16 09:34 Dose: 40 mg Guaifenesin (Robitussin Dm) 10 ml PO Q4H PRN PRN Reason: COUGH Guaifenesin (Mucinex) 1,200 mg PO BID [facility] Last Admin: 07/01/16 22:19 Dose: 1,200 mg Levofloxacin (Levaquin Tab) 750 mg PO DAILY [facility] Last Admin: 07/01/16 09:33 Dose: 750 mg Losartan Potassium (Cozaar) 50 mg PO DAILY [facility] Last Admin: 07/01/16 09:29 Dose: Not Given Meloxicam (Mobic) 7.5 mg PO BID PRN PRN Reason: Pain - Moderate (5-7) Metoprolol Tartrate (Lopressor) 100 mg PO BID [facility] Last Admin: 07/01/16 22:20 Dose: 100 mg Prednisone (Prednisone 20mg) 60 mg PO DAILYWM [facility] Last Admin: 07/02/16 08:20 Dose: 60 mg Fluticasone/Salmeterol (Advair 500/50) 1 puff INH RESP.Q12H [facility] Last Admin: 07/02/16 06:03 Dose: 1 puff Sodium Chloride (Hyper-Garrett) 4 ml INH BID [facility] Last Admin: 07/01/16 23:00 Dose: 4 ml Tramadol HCl (Ultram) 50 mg PO Q6H PRN PRN Reason: BREAKTHROUGH PAIN AMI Plan - Labs Result Diagrams: 07/01/16 10:01 07/01/16 10:01
[2016-07-02] MEDS: METOPROLOL TART 50 MG TABLET PO SCH ×2 (10:04→21:06)
[2016-07-02] MEDS: ENOXAPARIN 40 MG/0.4 ML SYR SQ SCH (10:04)
[2016-07-02] MEDS: LEVOFLOXACIN 500 MG TABLET PO SCH (10:05)
[2016-07-02] MEDS: ASPIRIN 325 MG TAB ENTERIC-COATED PO SCH (10:08)
[2016-07-02] MEDS: DULOXETINE HCL 30 MG CAPSULE.DR PO SCH (10:08)
[2016-07-02] MEDS: SODIUM CHLORIDE 7% FOR INHALATION 4 ML NEB INH SCH ×2 (11:21→20:08)
[2016-07-02] MEDS: BENZONATATE 100 MG CAPSULE PO PRN ×2 (11:34→21:14)
[2016-07-02] MEDS: ATORVASTATIN 20 MG TABLET PO SCH (21:06)
[2016-07-03] MEDS: IPRATROPIUM/ALBUTEROL (0.5MG/3MG) NEB INH SCH ×2 (06:35→11:12)
[2016-07-03] MEDS: FLUTICASONE/SALMETEROL 500/50 DISKUS INH SCH (06:36)
--- NOTE | 2016-07-03 07:55 | Discharge Summary ---
Providers Discharge Summary Date: 07/03/16 Date of admission: 06/29/16 11:35 Expected Date of Discharge: 07/03/16 Attending physician: KALIA MCKEON Physical Exam - Vital Signs Vital Signs: Vital Signs - Last 24 Hrs Temp Pulse Pulse Resp BP BP Pulse Ox 07/03/16 06:37 76 18 97 07/02/16 21:02 98.4 F 85 20 124/71 93 L 07/02/16 21:00 85 20 07/02/16 20:15 85 20 07/02/16 20:10 80 20 94 L 07/02/16 20:08 94 L 07/02/16 17:00 98.4 F 80 18 116/64 94 L 07/02/16 11:20 97.7 F 126/71 07/02/16 10:16 80 18 88 L 07/02/16 10:14 84 18 88 L 07/02/16 09:43 97.7 F 76 18 127/75 93 L 07/02/16 09:00 76 20 - General General Appearance: Alert, Oriented x3, Cooperative, No acute distress Limitations: No limitations - Head Head exam: Normal inspection - Eye Eye exam: Normal appearance, PERRL, EOMI Pupils: Normal accommodation - ENT ENT exam: Normal exam, Mucous membranes moist, Normal external ear exam, Normal orophraynx Ear exam: Normal external inspection. negative: External canal tenderness Nasal Exam: Normal inspection. negative: Discharge, Sinus tenderness Mouth exam: Normal external inspection, Tongue normal Teeth exam: Normal inspection. negative: Dental caries Throat exam: Normal inspection. negative: Tonsillar erythema, Tonsillar exudate - Neck Neck exam: Normal inspection, Full ROM. negative: Tenderness - Respiratory Respiratory exam: Decreased breath sounds, Prolonged expiratory, Wheezes. negative: Normal lung sounds bilaterally, Accessory muscle use, Respiratory distress - Cardiovascular Cardiovascular Exam: Regular rate, Normal rhythm, Normal heart sounds - GI/Abdominal GI/Abdominal exam: Soft, Normal bowel sounds. negative: Tenderness - Rectal Rectal exam: Deferred - exam: Deferred - Extremities Extremities exam: Normal inspection, Full ROM, Normal capillary refill. negative: Tenderness - Back Back exam: Reports: Normal inspection, Full ROM. Denies: Muscle spasm, Rash noted, Tenderness - Neurological Neurological exam: Alert, CN II-XII intact, Normal gait, Oriented X3 - Psychiatric Psychiatric exam: Normal affect, Normal mood - Skin Skin exam: Dry, Intact, Normal color, Warm Hospitalization - Hospitalization Admission Diagnosis: acute exacerbation copd, outpt failure, hypoxia - Problem List/Discharge Diagnosis (1) COPD with acute exacerbation Current Visit: Yes Status: Acute Base Code: J44.1 - CHRONIC OBSTRUCTIVE PULMONARY DISEASE W (ACUTE) EXACERBATION Comment: 07/03/16- patient tested positive for RSV, negative for flu. Continue COPD pathway with prophylactic antibiotic (levaquin). -Antibiotic (Levaquin) completed on 07/03/16. -steroids 60mg/day (given loading dose 125mg in ER), will complete steroid taper at home. -continue breathing treatments with duonebs qid, albuterol q 4 hours, and inhaled saline solution following duo neb treatments. -will start patient on anticholinergic/[id number]/LABA combo- Anoro Ellipta sent to patient's pharmacy. 1 puff inhaled every day. -Oxygen sat remaining above 90% with ambulation. -Patient performed home O2 qualification testing- she did not qualify. -Repeat CXR: NAP, unchanged from previous imaging 06/27/16 -Home medications will include: tessalon perles prn for cough, duo neb treatments, anoro ellipta, steroid taper, mucinex 1200 mg bid, and inhaled saline solution. -Important to continue smoking cessation. -F/up appt Wednesday @ 740 am with Georgie Zuñiga. Patient agrees to return to the ER in the meantime re any new or worsening symptoms (i.e worsening sob/ zohra, dizziness, lightheadedness, chest pain, etc) (2) Hypertension Current Visit: Yes Status: Acute Base Code: I10 - ESSENTIAL (PRIMARY) HYPERTENSION Comment: 07/03/16: patient's BP remains normal while on Metoprolol 100 mg bid. Will continue to hold Losartan. Patient will f/up with primary provider on Wednesday of next week. Will continue to monitor BP and determine whether patient 's Losartan should be added back to treatment regimen. (3) Full code status Current Visit: Yes Status: Acute Base Code: Z78.9 - OTHER SPECIFIED HEALTH STATUS Comment: 07/03/16- full code during this admission - Hospitalization Course Disposition: Home, Self-Care Hospital Course: 55 yo F presented to ED with increasing SOB with productive cough. Pt was seen yesterday by PA and given steroids. She is a current everyday smoker of 1ppd since 5928-1124 and now smokes a few ciggs a day now. At home she was doing duonebs, albuterol, and flonase. She was not taking any daily COPD medications. She was given solumederol 125mg IM/IV dose twice in past two days. Now she is on 60mg daily and was started on levaquin with duonebs here. She did have some flacial flushing but otherwise appears improved. Past medical history of superficial venous thrombosis, weakness, IBS, athritis, fibromyalgia, anxiety/depression, Factor 5 Liden. Patient has finished rehab for leg weakness, Sxh: hysterectomy, hemmorhoidectomy, cholescystectomy, 07/02/16: patient began feeling less SOB. ambulated to the bathroom w/o supplemental o2. oxygen sat remained above 90%. appetite improving. normal GI / function. coughing up yellow/white sputum. 07/03/16: patient lying in bed comfortably. her symptoms have been stable. continues to cough up yellow/ white sputum. ambulating without supplemental oxygen. appetite slowly improving. patient denies fever, chills, abd pain, n/v , weakness, chest pain, headache, dysuria, or rash. Procedures: Imaging and X-Rays 07/03/16 08:00 CHEST 2 VIEWS [RAD] Stat Abnormal Labs: Abnormal Lab Results 07/01/16 07/01/16 Range/Units 10:01 10:01 WBC 13.9 H (4.2-12.2) K/uL Neutrophils % 46.0 L (47-80) % Monocytes % 11.0 H (0-9) % Anion Gap 4.4 L (7-16) BUN 24 H (7-17) mg/dL Random Glucose 121 H (70-110) mg/dL Condition at Discharge: (1) Good Discharge Medications - Discharge Medications Prescriptions: Umeclidinium Brm/Vilanterol Tr [Anoro Ellipta 62.5-25 Mcg INH] 1 each IH DAILY # 1 disk.w.dev Ipratropium/Albuterol [Duoneb] 3 ml INH QID #120 ampul.neb Sodium Chloride 7% For INH [Hyper-Garrett] 4 ml INH BID #120 vial.neb Prednisone [Prednisone 20Mg] 60 mg PO DAILYWM #12 tab Benzonatate [Tessalon Perles] 100 mg PO TID PRN #60 capsule PRN Reason: Cough Home Medications: Ambulatory Orders Aspirin/Calcium Carbonate/Mag [Aspirin Buffered 325 mg Tab] 325 mg PO DAILY #30 tablet 01/03/15 [Last Taken 06/27/16] Cyclobenzaprine HCl [Flexeril] 1 tab PO BID PRN #60 tablet 01/03/15 [Last Taken 06/27/16] Fluticasone Propionate [Flonase] 1 - 2 spray EACH NARES DAILY #1 bottle [Last Taken 06/27/16] Benzonatate [Tessalon Perles] 100 mg PO TID PRN #60 capsule 07/03/16 [Last Taken Unknown] Ipratropium/Albuterol [Duoneb] 3 ml INH QID #120 ampul.neb 07/03/16 [Last Taken Unknown] Prednisone [Prednisone 20Mg] 60 mg PO DAILYWM #12 tab 07/03/16 [Last Taken Unknown] Sodium Chloride 7% For INH [Hyper-Garrett] 4 ml INH BID #120 vial.neb 07/03/16 [ Last Taken Unknown] Umeclidinium Brm/Vilanterol Tr [Anoro Ellipta 62.5-25 Mcg INH] 1 each IH DAILY # 1 disk.w.dev 07/03/16 [Last Taken Unknown] Discharge Plan - Discharge Instructions Activity at Discharge: Increase Activity as Tolerated Diet at Discharge: Regular Diet Instructions: Respiratory Syncytial Virus (DC) Additional Instructions: Continue medications as prescribed. Lung Medications: Prednisone taper albuterol inhaler breathing treatment--duo neb treatments four times daily (using nebulizer machine) inhaled saline solution twice daily following two of your breathing treatments Anoro Ellipta once daily mucinex 1200 mg twice daily tessalon perlse three times daily as needed for cough. STOP SMOKING FOR GOOD! Blood pressure medication: Continue Metoprolol (Lopressor) 100 mg twice daily. STOP Losartan 50 mg daily. please poultry picker prescriptions from pharmacy. Nebulizer machine script should be taken to closest [employer] store to obtain machine. follow up with Georgie Zuñiga PA-C next Wednesday at 740 am. please return sooner regarding any new or worsening symptoms.
[2016-07-03] MEDS: PREDNISONE 20 MG TAB PO SCH (08:22)
--- NOTE | 2016-07-03 08:36 | RADIOLOGY REPORT ---
EXAM: CHEST, TWO VIEWS HISTORY: COUGH. TECHNIQUE: Upright PA and lateral views of the chest were obtained. Comparison: Two view chest radiographic examination dated 06/27/16. FINDINGS: The heart is not enlarged and the pulmonary vasculature is nondilated. The lungs and pleural spaces remain clear. There are mild degenerative changes scattered within the visualized spine. The lung volumes are at the upper limits of normal. IMPRESSION: NO RADIOGRAPHIC EVIDENCE OF ACUTE CARDIOPULMONARY DISEASE WITHOUT SIGNIFICANT CHANGE SINCE 06/27/16. JOB NUMBER: [id number] MTDD
[2016-07-03] MEDS: DULOXETINE HCL 30 MG CAPSULE.DR PO SCH (10:14)
[2016-07-03] MEDS: ASPIRIN 325 MG TAB ENTERIC-COATED PO SCH (10:14)
[2016-07-03] MEDS: LEVOFLOXACIN 500 MG TABLET PO SCH (10:14)
[2016-07-03] MEDS: GUAIFENESIN 1,200 MG TABLET PO SCH (10:15)
[2016-07-03] MEDS: METOPROLOL TART 50 MG TABLET PO SCH (10:15)
[2016-07-03] MEDS: ENOXAPARIN 40 MG/0.4 ML SYR SQ SCH (10:18)
[2016-07-03] MEDS: LOSARTAN POTASSIUM 25 MG TABLET PO SCH (10:31)
[2016-07-03] MEDS: SODIUM CHLORIDE 7% FOR INHALATION 4 ML NEB INH SCH (11:12)
== END 2016-07-03 15:30 | disposition home or self-care (01) | DRG 190 ==
LOC: ER 12:16 → MEDSURG 18:06 → INTOOBSV 18:06 → OBSVTOIN 18:06
PROVIDERS: ADMIT Family Medicine; ATTEND Family Medicine
DX: J44.1 Chronic obstructive pulmonary disease with (acute) exacerbation (principal); Z78.9 Other specified health status; J12.1 Respiratory syncytial virus pneumonia; E78.00 Pure hypercholesterolemia, unspecified; F17.200 Nicotine dependence, unspecified, uncomplicated
CPT/HCPCS: 99285 ×2; 94760; 96374; 80048; 85379; 85027; 83880; 71020; 94640 ×7; 94762 ×3; G0378 ×30; J1956 ×2; 94620; 94667; 94668; 94761; 99220; 99233; 99239; J1650; J2930; J7512; J7613

== ENCOUNTER 2016-07-20 11:32 | Emergency (ER) | payer MEDICARE, MEDICAID ==
[2016-07-20] MEDS ORDERED: METHYLPREDNISOLONE PF 125MG/VIAL IVP ONE (12:13)
[2016-07-20] MEDS ORDERED: IPRATROPIUM/ALBUTEROL (0.5MG/3MG) NEB INH ONE (12:13)
--- NOTE | 2016-07-20 12:20 | Emergency Department Record ---
History of Present Illness - General Chief Complaint: Recheck - Other Stated Complaint: NEEDS CT Time Seen by Provider: 07/20/16 12:02 Source: Patient Mode of arrival: Ambulatory Limitations: No limitations - History of Present Illness Initial Comments: The patient is here due to having coughing, congestion, and PILO for about 3 weeks. She was in the hospital here for 3 days and was discharged 17 days ago due to COPD and RSV pneumonia. Now she is still wheezing and dyspneic. She also has been having bilateral shoulder pain with the coughing. There has been no reported bloody sputum, fever, chills, or any anterior chest pain. The patient did see her PCP today and was prescribed more oral steroids and Abx's but did have a D-Dimer that was done that was slightly elevated. Due to that she was called to come to the ER for a CT. The patient possibly has a family hx of clotting issues but denies any leg pain, swelling, or any recent travel. MD Complaint: Other Onset/Timin -: Week(s) Initial Visit For: Other Returns Today for: Called because of abnormal lab/test Symptoms Since Prior Visit: No new symptoms Associated Symptoms: None - Related Data Previous Rx's Medication Instructions Recorded Aspirin/Calcium Carbonate/Mag 325 mg PO DAILY #30 tablet 01/03/15 [Aspirin Buffered 325 mg Tab] Fluticasone Propionate [Flonase] 1 - 2 spray EACH NARES DAILY #1 01/03/15 bottle Allergies Allergy/AdvReac Type Severity Reaction Status Date / Time No Known Drug Allergies Allergy Unverified 07/20/16 07:43 Travel Screening - Travel/Exposure Within Last 30 Days Have you traveled within the last 30 days?: No Review of Systems Constitutional: Reports: Malaise. Denies: Chills, Fever Eyes: Denies: Eye discharge ENT: Reports: Congestion Respiratory: Reports: Cough, Dyspnea. 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 - ENDOCRINE Hx Endocrine Disorders: No - MUSCULOSKELETAL Hx Musculoskeletal Disorders: Yes Hx Arthritis: Yes - PSYCH Hx Psych Problems: Yes Hx Anxiety: Yes Hx Depression: Yes - HEMATOLOGY/ONCOLOGY Hx Hematology/Oncology Disorders: Yes Hx Clotting Problems: Yes (factor 5) Family Medical History Any Significant Family History?: Yes Family Hx Comment (NOT TO BE USED IN PLACE OF ITEMS BELOW): factor 5 (multiple family members)-mom with DVt Hx Cancer: Grandparents *Cancer Comment: colon Hx HTN: Father, Mother, Children, Brother/Sister, Grandparents Hx Stroke: Father Physical Exam - General General Appearance: Alert, Oriented x3, Cooperative, No acute distress - Head Head exam: Atraumatic, Normocephalic, Normal inspection - Eye Eye exam: Normal appearance, PERRL - ENT Throat exam: Normal inspection. negative: Tonsillar erythema, Tonsillar exudate - Neck Neck exam: Normal inspection, Full ROM. negative: Tenderness - Respiratory Respiratory exam: Wheezes (There are mild wheezes in all lung rogers.). negative: Normal lung sounds bilaterally, Accessory muscle use, Decreased breath sounds, Respiratory distress - Cardiovascular Cardiovascular Exam: Regular rate, Normal rhythm, Normal heart sounds - GI/Abdominal GI/Abdominal exam: Soft, Normal bowel sounds. negative: Tenderness - Extremities Extremities exam: Normal inspection, Full ROM, Normal capillary refill. negative: Calf tenderness, Joint swelling, Pedal edema, Tenderness - Back Back exam: Reports: Normal inspection - Neurological Neurological exam: Alert, Normal gait. negative: Abnormal gait, Motor sensory deficit Course Vital Signs 07/20/16 11:56 Temperature 98.1 F Pulse Rate 86 Respiratory 20 Rate Blood Pressure 120/73 Pulse Ox 93 L - Reevaluation(s) Reevaluation #1: The patient is doing better at this time and is breathing very comfortably. She is presently on her way to CT. 07/20/16 13:06 Reevaluation #2: The patient is doing well. She is resting comfortably with no pain or discomfort. She still has mild wheezes on exam but no PILO, CP or back pain. I explained to her the neg CT results and the need to continue the medicines her PCP gave her today and to F/U next week for recheck. On exam her lungs aeration is improved but with mild wheezing at the bases. Her RA biox is 95%. I did discuss the results with Kaitlyn STALLWORTH) and she will see the patient in the office next week. 07/20/16 14:08 Medical Decision Making - Data Complexity MDM Data: Labs Ordered and/or Reviewed, X-Ray Ordered and/or Reviewed, EKG Ordered and/or Reviewed - Lab Data Result diagrams: 07/20/16 12:30 - EKG Data -: EKG Interpreted by Me EKG: No Acute Changes, Normal EKG - Radiology Data Radiology results: Report reviewed (Chest CT: Neg for PE, dissection, or pneumonia.) Disposition Disposition: Discharge Clinical Impression: COPD with acute exacerbation Disposition: Home, Self-Care Condition: (1) Good Instructions: Chronic Obstructive Pulmonary Disease (ED) Additional Instructions: Please continue your regular medicines and continue the steroids and antibiotics given to you today. Please see your PCP next week for recheck and return to the ER for any increased cough, any increased wheezes, trouble breathing, fever, or pain. Forms: Patient Portal Access Time of Disposition: 14:15
[2016-07-20] MEDS ORDERED: 0.9 % SODIUM CHLORIDE 1,000 ML BAG IV ONE (12:31)
[2016-07-20 12:56] LABS: ANION GAP 7.1 (7-16); BLOOD UREA NITROGEN 19 mg/dL (7-17); CARBON DIOXIDE 30.9 mmol/L (22-30); CREATINE PHOSPHOKINASE 48 U/L (30-135); CREATININE 0.9 mg/dL (0.52-1.04); EST GLOMERULAR FILTRATION RATE > 60 ml/min; GLUCOSE,RANDOM 115 mg/dL (70-110)
[2016-07-20 12:57] LABS: INR 0.9; PROTHROMBIN TIME (PATIENT) 10.2 SECONDS (9.5-12.1)
[2016-07-20 13:08] LABS: CKMB 1.2 ug/L (0-6)
[2016-07-20 13:10] LABS: TROPONIN I < 0.012 ng/mL (0.00-0.034)
== END 2016-07-20 14:30 | disposition home or self-care (01) ==
LOC: ER 11:32
DX: I10 Essential (primary) hypertension (principal); J44.1 Chronic obstructive pulmonary disease with (acute) exacerbation; F17.210 Nicotine dependence, cigarettes, uncomplicated; R05 Cough; R09.89 Other specified symptoms and signs involving the circulatory and respiratory systems
CPT/HCPCS: 71020; 71275; 80048; 82550; 82553; 84484; 85025; 85379; 85610; 85730; 93005; 93010; 94640; 96374; 99284; J2930; J7030